=== PATIENT | female | born 1955 | race Caucasian/White ===

== ENCOUNTER 2021-08-25 08:03 | Outpatient (REF) | payer OTHER, SELFPAY ==
[2021-08-25 11:43] LABS: Appearance Urine HAZY; Color Urine YELLOW; Glucose Urine UA NEG (NEG); Leukocyte Esterase Urine TRACE (NEG); Nitrite Urine NEG (NEG); PH 6.5 (5.0-8.0); Urine Blood NEG (NEG); Urine Ketones NEG (NEG); Urine Protein NEG (NEG-TRACE)
[2021-08-25 11:53] LABS: Hemoglobin 13.8 g/dl (12.0-16.0); Mean Corpuscular HGB Conc 32.9 g/dl (31.0-35.0); Mean Corpuscular Hemoglobin 27.8 pg (27.0-33.0); Mean Corpuscular Volume 84.5 fL (80.0-98.0); Mean Platelet Volume 10.7 fL (9.4-12.3); Platelet Count 282 X10*3/uL (160-400); Red Blood Count 4.97 X10*6/uL (4.20-5.50); Red Cell Distribution Width 12.8 % (11.0-16.0); White Blood Count 5.9 X10*3/uL (4.8-10.8)
[2021-08-25 12:30] LABS: Amorphous Sediment Urine 3+ /LPF; RBC Urine 0-2 /HPF (0); Squamous Epithelial Cell Urine 4+ /LPF; WBC Urine 0-2 /HPF (0-4)
[2021-08-25 12:31] LABS: Alanine Aminotransferase 15 U/L (0-31); Albumin Level 4.4 g/dL (3.5-5.0); Alkaline Phosphatase 65 U/L (39-117); Anion Gap 17 (12-20); Aspartate Amino Transferase 12 U/L (5-31); Bilirubin Total 0.5 mg/dL (0.0-1.0); Blood Urea Nitrogen 24 mg/dL (9-16); Calcium 9.3 mg/dL (8.4-10.2); Carbon Dioxide 21 mmol/L (22-29); Chloride 108 mmol/L (96-108); Cholesterol 210 mg/dL; Estimated Glomerular Filt Rate > 60; Glucose Fasting 106 mg/dL (60-99); HDL Cholesterol 45 mg/dL; LDL Cholesterol Calculated 136 mg/dl; Potassium 4.5 mmol/L (3.3-5.1); Sodium 141 mmol/L (135-145); Total Protein 7.3 g/dL (6.5-8.0); Triglycerides 146 mg/dL
[2021-08-25 12:56] LABS: TSH reflex Free T4 0.93 uIU/mL (0.32-4.0)
== END 2021-08-25 08:04 | disposition home or self-care (01) ==
LOC: HO.HMGCLDS 08:03
PROVIDERS: PCP Internal Medicine; Visit Provider Internal Medicine
DX: Z00.00 Encounter for general adult medical examination without abnormal findings (principal)
CPT/HCPCS: 36415; 80053; 80061; 81001; 84443; 85027

== ENCOUNTER 2021-11-18 14:54 | Outpatient (REF) | payer OTHER, SELFPAY ==
--- NOTE | ~2021-11-18 | XR_ITS ---
EXAMINATION: XR KNEE, LEFT CLINICAL INFORMATION: Pain COMPARISON: None TECHNIQUE: Four views of the left knee. FINDINGS: Bone alignment is normal. No fracture or dislocation is seen. There is a arthritis at the medial femoral tibial and patellofemoral joints with joint space narrowing and small osteophytes. There is a small joint effusion. XR/XR knee LT 4V IMPRESSION: Degenerative changes and small joint effusion.
== END 2021-11-18 14:55 | disposition home or self-care (01) ==
LOC: HO.HMGCX 14:54
PROVIDERS: Visit Provider Nurse Practitioner Family
DX: I10 Essential (primary) hypertension (principal); R01.1 Cardiac murmur, unspecified; M25.562 Pain in left knee
CPT/HCPCS: 73564

== ENCOUNTER → 2021-12-15 09:16 | Outpatient (REF) | payer OTHER, SELFPAY ==
--- NOTE | 2021-12-15 09:20 | CA_ITS ---
Transthoracic Echocardiogram Patient (Last, First, Middle): Carolann Mckeon, Gender: Female Date of : 1955 Age: 66 Procedure Date: 12/15/2021 Procedure Type: Transthoracic Echocardiogram Location: OP Height: 170.18 cm Weight: 95.26 kg BSA: 2.06 m2 Heart Rate: bpm BP: 150 / 90 mmHg Lpn Or Medical Assistant: JA Referring MD: Levi Sanchez [facility] Substation Manager: Juan F Bishop MD Symptoms: R01.1 - Cardiac murmur, unspecified Study Quality: Fair ECG Rhythm: Sinus Conclusions: - 1. Normal LV systolic function with grade 1 diastolic dysfunction 2. Normal cardiac valvular Doppler 3. Normal RV systolic pressure 4. No pericardial effusion Findings Left Ventricle Normal left ventricular size, thickness, and systolic function. The visually estimated ejection fraction is between 65-70%. Spectral Doppler is indicative of an impaired relaxation filling pattern. E/E prime ratio is <8, consistent with normal filling pressures. Evidence suggests grade I (mild) diastolic dysfunction. Right Ventricle Normal right ventricular cavity size and systolic function. Atria Both atria are normal in size. Interatrial shunt cannot be excluded. Aortic Valve The aortic valve structure and function is likely normal. There is no aortic valve stenosis. There is no aortic valve regurgitation. Mitral Valve Normal mitral valve structure and function. There is trace mitral valve regurgitation. There is no mitral valve stenosis. Pulmonic Valve The pulmonic valve was not well visualized. Tricuspid Valve Likely normal tricuspid valve structure and function. There is trace tricuspid valve regurgitation. The right ventricular systolic pressure is normal. The right ventricular systolic pressure is 24 mmHg. Normal right atrial pressure. There is no evidence of pulmonary hypertension. Great Vessels All visible segments of the aorta are normal in size. The pulmonary artery was not well visualized. Venous The inferior vena cava is normal in size and collapses greater than 50% with inspiration. Pericardium/Pleural There is no evidence of pericardial effusion. Prior Study Comparison No prior study available for comparison. Measurements 2D Linear Measurements IVSd: 1.21 0.6-0.9/0.6-1.0 cm LVIDd: 4.30 3.9-5.3/4.2-5.9 cm LVIDd Index: 2.09 2.4-3.2/2.2-3.1 cm/m2 LVIDs: 2.47 2.0-3.6 cm LVPWd: 1.08 0.7-1.1 cm LA Diam: 3.50 2.7-3.8/3.0-4.0 cm LAIDs Index: 1.70 1.5-2.3 cm/m2 LV Mass: 214.95 67-162/88-224 g LV Mass Index: 104.35 43-95/49-115 g/m2 LVOT Diam: 2.00 3.0+(-)1.3 cm 2D Systolic Function EF 4C: 72.60 >55% EF 2C: 69.40 >55% EF BiP: 70.70 >55% Mitral Valve MV Pk E: 0.52 MV PK A: 0.78 MV Decel Time: 193.00 E/A: 0.70 E'Lateral: 7.94 E'Medial: 7.07 E/E' Med: 7.40 E/E' Lat: 6.60 PHT: 56.00 MVA PHT: 3.93 Decel [place]: 2.71 Aortic Valve AoV Pk Adithya: 1.36 AoV Pk Grad: 7.00 LVOT LVOT Pk Adithya: 0.94 LVOT Mn Adithya: 0.59 LVOT VTI: 0.22 LVOT Pk Grad: 4.00 LVOT Mn Grad: 2.00 LVOT Diam: 2.00 LVOT Area: 3.14 Diastolic Function MV Pk E: 0.52 MV Pk A: 0.78 E/A: 0.70 E'Medial: 7.07 E/E' Med: 7.40 E' Laterial: 7.94 E/E' Lat: 6.60 Right Ventricle TAPSE (mm): 2.48 TVS' Adithya: 14.30 Tricuspid Valve TR Pk Adithya: 2.28 TR Pk Grad: 21.00 RA Press: 3.00 RVSP: 24.00 Great Vessels Aorta Ao Asc: 2.90 2.1-3.4 cm Ao Arch: 3.00 Updated in Other Vendor System with Status of Final Juan F Bishop MD electronically signed on 12/16/2021 12:06:01 PM with status of Final
== END ==
LOC: HO.CARD 09:16
PROVIDERS: PCP Nurse Practitioner Family; Visit Provider Nurse Practitioner Family
DX: R01.1 Cardiac murmur, unspecified (principal)
CPT/HCPCS: 93306

== ENCOUNTER 2022-01-19 10:00 | Outpatient (RCR) | payer OTHER, SELFPAY ==
--- NOTE | 2021-12-23 12:52 | MHC.PT.EP ---
[facility] [place] Office [place] Office [place] Office [address] [phone] F: [phone] F: [phone] F: [phone] F: [phone] Physical Therapy Plan of Care Date of Evaluation: Date of Surgery: Diagnosis: L knee OA Assessment: Patient is a 66 year old R handed female who presents with s/s consistent with L knee pain. 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 Patient past medical history is fairly unremarkable and non-contributory. Current impairments include pain, balance, ROM, strength, activity tolerance and functional mobility. Functional limitations include decreased ability to push e-brake, walk, stand, negotiate stairs and exercise. Patient is motivated with good rehab potential. Skilled PT will address impairments and functional limitations in order to achieve goals. Frequency and Duration: The patient will be seen 2x/week for 5 weeks Short Term Goals: I with HEP - 2 weeks AAROM flexion to 125 - 3 weeks Strength 4/5 knee ext and hip flexion - 3 weeks Administrative Services Manager Goals: Able to walk pain free with symmetrical gait - 15 minutes - 5 weeks Pain free stair negotiation - 5 weeks LEFS 64/80 - 5 weeks Treatment Plan: Modalities to reduce pain, spasms and effusion. Manual therapy to restore motion and function. Therapeutic exercise to improve strength and flexibility. Neuromuscular re-education for posture and balance. Therapeutic activities to return to functional activities of daily living. Electronically signed by: Roni Miller, PT Please sign and return to therapist. Thank you for your referral.
--- NOTE | 2022-06-29 09:32 | MHC.PT.DC ---
[facility] [place] Office [place] Office [place] Office [address] Radha Saunders [address] [phone] F: [phone] F: [phone] F: [phone] F: [phone] Physical Therapy Discharge Report Diagnosis: L knee OA Date of Surgery: Date of Evaluation: 12/22/21 Date of Discharge: 02/09/22 Treatments to Date: 7 Cancellations to Date: No Shows to Date: Discharge Status: Improved Function Independent with HEP Discharge Summary: 01/19/22: Pt progressing very well, improved ability to negotiate stairs reciprocally. Less pain overall. Updated HEP and issued bands. We will plan to follow up in 2 weeks then d/c to HEP at that time. 01/12/22: pt with some pain after upright bike. we will hold on this next visit for more preferable aerobic alternative. 01/09/22: pt AAROM flexion 130. I with HEP. Strength is 4/5 grossly. She is able to walk symmetrically pain free. We worked on stairs today and will continue to progress with this. 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 pain has been lessening but still there and greater on damp/rainy days. 01/02/22: pt progressing very well with little discomfort over the last few days. she is nearing PLOF. we will continue with current HEP. 12/29/21; Pt reported increase medial knee pain after shuttle. Pt patella mobility equal. Pt fatigued with hip abd red band. Electronically signed by: Roni Miller, PT Please sign and return to therapist. Thank you for your referral.
== END 2022-06-29 09:32 | disposition home or self-care (01) ==
LOC: HO.PTCHIC 10:00
PROVIDERS: PCP Nurse Practitioner Family; Visit Provider Nurse Practitioner Family
DX: M17.12 Unilateral primary osteoarthritis, left knee (principal)
CPT/HCPCS: 97110; 97161; 97530

== ENCOUNTER → 2022-04-17 09:26 | Outpatient (BNVA) | payer OTHER, SELFPAY | PROVIDERS: PCP Nurse Practitioner Family; Visit Provider Physician Assistant | DX: Z12.11 Encounter for screening for malignant neoplasm of colon (principal); R93.3 Abnormal findings on diagnostic imaging of other parts of digestive tract | CPT/HCPCS: 99202; 99212 ==

== ENCOUNTER 2022-04-27 06:55 | Outpatient (REF) | payer OTHER, SELFPAY ==
[2022-04-27 11:04] LABS: MANUAL DIFF FLAG NO
[2022-04-27 11:11] LABS: Basophils Absolute Auto 0.1 X10*3/uL (0.0-0.2); Basophils Percent Auto 1.1 % (0-2); Eosinophils Absolute Auto 0.1 X10*3/uL (0.0-0.4); Eosinophils Percent Auto 0.8 % (0-4); Hematocrit 39.9 % (37.0-47.0); Imm Gran Abs Auto 0.01 X10*3/uL (0.00-0.03); Imm Gran Pct Auto 0.2 % (0.0-0.4); Lymphocytes Absolute Auto 2.5 X10*3/uL (1.2-4.9); Lymphocytes Percent Auto 39.7 % (20-40); Mean Corpuscular HGB Conc 32.6 g/dl (31.0-35.0); Mean Corpuscular Hemoglobin 28.2 pg (27.0-33.0); Mean Corpuscular Volume 86.6 fL (80.0-98.0); Mean Platelet Volume 10.1 fL (9.4-12.3); Monocytes Absolute Auto 0.7 X10*3/uL (0.1-1.2); Monocytes Percent Auto 10.9 % (2-11); Neutrophils Percent Auto 47.3 % (45-73); Platelet Count 260 X10*3/uL (160-400); Red Blood Count 4.61 X10*6/uL (4.20-5.50); White Blood Count 6.2 X10*3/uL (4.8-10.8)
[2022-04-27 11:13] LABS: Appearance Urine HAZY; Color Urine STRAW; Glucose Urine UA NEG (NEG); Leukocyte Esterase Urine TRACE (NEG); Nitrite Urine NEG (NEG); PH 5.5 (5.0-8.0); Specific Gravity - Urine 1.015 (1.005-1.025); Urine Blood NEG (NEG); Urine Ketones NEG (NEG); Urine Protein NEG (NEG-TRACE)
[2022-04-27 11:22] LABS: Alanine Aminotransferase 15 U/L (0-31); Albumin Level 4.3 g/dL (3.5-5.0); Alkaline Phosphatase 70 U/L (39-117); Anion Gap 12 (12-20); Aspartate Amino Transferase 10 U/L (5-31); Bilirubin Total 0.6 mg/dL (0.0-1.0); Blood Urea Nitrogen 21 mg/dL (9-16); Calcium 9.2 mg/dL (8.4-10.2); Carbon Dioxide 26 mmol/L (22-29); Chloride 109 mmol/L (96-108); Cholesterol 211 mg/dL; Estimated Glomerular Filt Rate > 60; Glucose Fasting 124 mg/dL (60-99); HDL Cholesterol 46 mg/dL; LDL Cholesterol Calculated 145 mg/dl; Potassium 4.2 mmol/L (3.3-5.1); Sodium 143 mmol/L (135-145); Triglycerides 104 mg/dL
[2022-04-27 11:30] LABS: Amorphous Sediment Urine 3+ /LPF; Bacteria Urine TRACE /LPF; RBC Urine 0 /HPF (0); Squamous Epithelial Cell Urine 4+ /LPF
[2022-04-27 11:46] LABS: TSH reflex Free T4 1.72 uIU/mL (0.32-4.0)
== END 2022-04-27 06:56 | disposition home or self-care (01) ==
LOC: HO.HMGCLDS 06:55
PROVIDERS: Visit Provider Nurse Practitioner Family
DX: I10 Essential (primary) hypertension (principal)
CPT/HCPCS: 36415; 80053; 80061; 81001; 84443; 85025

== ENCOUNTER 2022-05-09 07:53 | Day surgery (SDC) | payer OTHER, SELFPAY ==
[2022-05-03 14:38] VITALS: BMI 33.6
--- NOTE | 2022-05-08 09:27 | P.CONAN_ITS ---
Documented by User: Fabby Cunningham NP 05/08/22 09:29 HPI - Anesthesia Eval Consult details Narrative: 66yo F for Colonoscopy PMFSH Active Problems Active Problems: All Active Problems (Updated 04/17/22 @ 11:24 by Juhi Nieto PA-C) Screening for colon cancer (Acute) Osteoarthritis of left knee (Acute) Left knee pain (Acute) Systolic murmur (Acute) HTN (hypertension) (Acute) Abnormal colonoscopy (Acute) Normal pelvic exam (Acute) Annual physical exam (Acute) Past Medical History Medical History Abnormal colonoscopy Annual physical exam Normal pelvic exam Family History Family History Mother HTN (hypertension) Surgical History Surgical History History of removal of ovarian cyst Hx of colonoscopy Social History Social History 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:: , 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, 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, daughter in [place] Housing: House Patient Tobacco Use Status: Former Tobacco user Years Smoked: quit 1983 e-Cigarette/Vaping Use: Never Used Second Hand Smoke Exposure: No Are you DNR?: No Advance Directives: No Advance Directives Information Provided: Yes Nutrition Risks: No Nutritional Risk service: No Current occupational status: employed Current occupation: [employer] Current occupational exposures/hazards: Yes Cognitive needs: No Hearing needs: No Vision needs: No Meds Allergies Allergy/AdvReac Type Severity Reaction Status Date / Time tetracycline AdvReac Intermediate Rash Verified 05/09/22 08:35 Home Medications Medication Instructions Recorded Confirmed Last Taken Type cetirizine 10 mg capsule (Zyrtec) 10 mg PO DAILY PRN Allergic 08/12/21 05/03/22 Unknown History Symptoms Exam Exam Date and Time: May 08, [id number] Height,Weight and Vital Signs: Height 5 ft 7 in Weight 97.522 kg Pertinent Lab Results Pertinent Lab Results: Laboratory Tests 04/27/22 04/27/22 07:05 07:05 WBC 6.2 Hgb 13.0 Hct 39.9 Plt Count 260 Sodium 143 Potassium 4.2 Chloride 109 H Carbon Dioxide 26 BUN 21 H Creatinine 0.80 Narrative Narrative: ECHO 12/2021 Conclusions: - 1.? Normal LV systolic function with grade 1 diastolic ? dysfunction? 2.? Normal cardiac valvular Doppler? 3.? Normal RV systolic pressure? 4.? No pericardial effusion? ?? Assessment and Plan Assessment Anesthesia Assessment: Chart Reviewed Documented by User: Kristie Diaz MD 05/09/22 09:44 PMFSH Active Problems Active Problems: All Active Problems (Updated 04/17/22 @ 11:24 by Juhi Nieto PA-C) Screening for colon cancer (Acute) Osteoarthritis of left knee (Acute) Left knee pain (Acute) Systolic murmur (Acute) HTN (hypertension) (Acute) Abnormal colonoscopy (Acute) Normal pelvic exam (Acute) Annual physical exam (Acute) Increased BMI Past Medical History Medical History Abnormal colonoscopy Annual physical exam Normal pelvic exam Family History Family History Mother HTN (hypertension) Family history of problems with anesthesia: No Surgical History Surgical History History of removal of ovarian cyst Hx of colonoscopy History of Problems with Anesthesia: No Social History Social History 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:: , 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, 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, benjamín kuo in [place] Housing: House Patient Tobacco Use Status: Former Tobacco user Years Smoked: quit 1983 e-Cigarette/Vaping Use: Never Used Second Hand Smoke Exposure: No Are you DNR?: No Advance Directives: No Advance Directives Information Provided: Yes Nutrition Risks: No Nutritional Risk service: No Current occupational status: employed Current occupation: [employer] Current occupational exposures/hazards: Yes Cognitive needs: No Hearing needs: No Vision needs: No Meds Allergies Allergy/AdvReac Type Severity Reaction Status Date / Time tetracycline AdvReac Intermediate Rash Verified 05/09/22 08:35 Home Medications Medication Instructions Recorded Confirmed Last Taken Type cetirizine 10 mg capsule (Zyrtec) 10 mg PO DAILY PRN Allergic 08/12/21 05/03/22 Unknown History Symptoms Exam Height,Weight and Vital Signs: Height 5 ft 7 in Weight 97.522 kg Vital Signs Temp Pulse Resp BP Pulse Ox O2 Del Method 05/09/22 08:19 98.2 F 72 18 141/76 H 95 Room Air Airway Mallampati Class: III TM Dist: >3cm Neck ROM: Full Loose/Missing/Broken Teeth: Yes (1 extraction bottom right. No loose per patient ) Heart: RRR Lungs: CTAB Assessment and Plan Assessment Anesthesia Assessment: Anesthesia Plan Discussed Final Anesthetic Review Family History of Problems with Anesthesia: No History of Problems with Anesthesia: No NPO: Yes ASA Class: II Final Preanesthetic Review: No Changes in Pt Med Stat, Meds/Allgs Chart Reviewed, Consent Obtained/Reviewed and Anes Risks/Benef Reviewed Patient Risk: Intermediate Procedure Risk: Low Assessment/Block/Sedation in SS: Assess/Block/Sedation-SS Anesthetic Plan Anesthetic Plan: MAC: Disposition: Standard PACU
[2022-05-09] MEDS: Lactated Ringers 1,000 ML 100 ML IVCONT (08:09)
[2022-05-09 08:19] VITALS: BP 141/76; PULSE 72; RESP 18; TEMP 36.8; O2SAT 95
--- NOTE | 2022-05-09 08:38 | P.HPSUR_ITS ---
Pre-Procedural Eval Section A Date of Service: 05/09/22 Section B Chief Complaint: colon screening Relevant Family History (Specify if Yes): No Relevant Social History: Other (specify) Present Medications: see Short Stay Collaborative assessment Medical History: Significant History (Abnormal colonoscopy Annual physical exam Normal pelvic exam) History of Previous Operations: Relevant previous surgery/procedure and date(s) (History of removal of ovarian cyst Hx of colonoscopy) Allergies: Allergies Allergy/AdvReac Type Severity Reaction Status Date / Time tetracycline AdvReac Intermediate Rash Verified 05/09/22 08:35 Review of Systems Sugical H&P ROS: Negative: Constitution, Cardiovascular, Respiratory, Neurological, Psychiatric, Hem-Onc, Allergic/Immunologic, Gastrointestinal, Genitourinary, Musculoskeletal, Integumentary, Endocrine and Eyes/Ears/Nos e/Throat Exam Surgical H&P Exam: Normal: HEENT, Normal: Heart, Normal: Lungs, Normal: Extremities, Normal: Abdomen, Normal: Skin and Normal: Neurological Plan Diagnosis/Plan: Unchanged I have reviewed the history and physical and performed a pertinent physical examination on my patient. No changes have occurred unless specified.
--- NOTE | 2022-05-09 09:44 | P.OP_ITS ---
Operative Note Operative Note Date of Service: 05/09/22 Narrative: Operative Information Procedure Description: Colonoscopy Indication: screening Anesthesia: MAC COLONOSCOPY Instrument: Olympus variable stiffness pediatric scope 190L Colonoscopy Monitoring: Vital signs and clinical assessment, continuous EKG monitoring, Pulse oximetry, Carbon Dioxide monitoring and blood pressure monitoring were done throughout the procedure. Colon withdrawal time was 6 minutes. Procedure: The patient was placed in the left lateral decubitis position and pre-procedure medications were administered. After a digital rectal examination of the ano-rectum, the video colonoscope was inserted into the rectum and advanced through the colon to the cecum/TI. The colonoscope was slowly withdrawn in a retrograde panoramic fashion and the colon mucosa was carefully examined including a retroflexed view of the rectum. Findings and interventions are described below. Procedure Difficulty: easy Findings: Terminal Ileum-normal Cecum: non bleeding AVMs seen in cecum Ascending Colon: 6-8 mm sessile polyp removed with cold forceps Transverse Colon -normal Descending Colon:normal Sigmoid Colon: midl diverticulosis Rectum: Retroflexion with medium sized internal hemorrhoids, grade I Anorectum - normal Colon preparation: [place] Bowel Preparation Scale Right colon; 2 Transverse colon: 2 Left colon; 2 (0 = Unprepared colon segment with mucosa not seen due to solid stool that canno t be cleared. 1 = Portion of mucosa of the colon segment seen, but other areas of the colon segment not well seen due to staining, residual stool and/or opaque liquid. 2 = Minor amount of residual staining, small fragments of stool and/or opaque liquid, but mucosa of colon segment seen well. 3 = Entire mucosa of colon segment seen well with no residual staining, small fragments of stool or opaque liquid) Impression and Post Procedure Diagnosis: Plan: High fiber diet leaflet Avoid straining at stool, epsom salts and sitz bath, anusol supps or cream Repeat Colonoscopy in 5-7 years if adenomatous polyp, 10 yrs if benign or earlier if clinically indicated Above findings were reviewed with the patient and relevant handouts were provided if indicated.
[2022-05-09 09:52] VITALS: BP 142/64; PULSE 65; RESP 15; TEMP 36.3; O2SAT 97
[2022-05-09 10:06] VITALS: BP 157/83; PULSE 60; RESP 18; TEMP 36.3; O2SAT 97
== END 2022-05-09 10:27 | disposition home or self-care (01) ==
PROVIDERS: PCP Nurse Practitioner Family; Visit Provider Internal Medicine Gastroenterology
PROC: 0DJD8ZZ Inspection of Lower Intestinal Tract, Via Natural or Artificial Opening Endoscopic (ICD-10-PCS; CPT 45378; principal; 2022-05-09 09:10)
DX: Z12.11 Encounter for screening for malignant neoplasm of colon (principal); K63.5 Polyp of colon; K57.30 Diverticulosis of large intestine without perforation or abscess without bleeding; K64.0 First degree hemorrhoids; K55.20 Angiodysplasia of colon without hemorrhage; K59.00 Constipation, unspecified; Z79.899 Other long term (current) drug therapy; Z87.891 Personal history of nicotine dependence
CPT/HCPCS: 45380; 88305

== ENCOUNTER 2023-04-04 07:17 | Outpatient (REF) | payer BC, SELFPAY ==
[2023-04-04 11:16] LABS: MANUAL DIFF FLAG NO
[2023-04-04 11:25] LABS: Basophils Absolute Auto 0.1 X10*3/uL (0.0-0.2); Basophils Percent Auto 1.3 % (0-2); Eosinophils Absolute Auto 0.1 X10*3/uL (0.0-0.4); Eosinophils Percent Auto 1.1 % (0-4); Hematocrit 41.6 % (37.0-47.0); Hemoglobin 13.3 g/dl (12.0-16.0); Imm Gran Abs Auto 0.01 X10*3/uL (0.00-0.03); Imm Gran Pct Auto 0.2 % (0.0-0.4); Lymphocytes Absolute Auto 2.4 X10*3/uL (1.2-4.9); Lymphocytes Percent Auto 42.4 % (20-40); Mean Corpuscular Hemoglobin 28.5 pg (27.0-33.0); Mean Corpuscular Volume 89.1 fL (80.0-98.0); Mean Platelet Volume 10.5 fL (9.4-12.3); Monocytes Absolute Auto 0.6 X10*3/uL (0.1-1.2); Monocytes Percent Auto 11.6 % (2-11); Neutrophils Absolute Auto 2.4 x10*3/uL (2.0-8.3); Neutrophils Percent Auto 43.4 % (45-73); Platelet Count 256 X10*3/uL (160-400); Red Blood Count 4.67 X10*6/uL (4.20-5.50); White Blood Count 5.5 X10*3/uL (4.8-10.8)
[2023-04-04 11:35] LABS: Appearance Urine Cloudy; Color Urine Yellow; Glucose Urine UA Negative (Negative); Leukocyte Esterase Urine Moderate (2+) (Negative); Nitrite Urine Negative (Negative); PH 5.5 (5.0-9.0); UMIC TRIGGER UACC YES; Urine Blood Negative (Negative); Urine Ketones Negative (Negative); Urine Protein Negative (Neg-Trace)
[2023-04-04 11:39] LABS: Bacteria Urine 3+ (None Seen); Hyaline Casts Urine 0-2 /LPF (0-2); RBC Urine 0-2 /HPF (0-2); Squamous Epithelial Cell Urine >20 /HPF (0-2); UACC Culture Trigger YES
[2023-04-04 12:00] LABS: Alanine Aminotransferase 15 U/L (0-31); Alkaline Phosphatase 63 U/L (39-117); Anion Gap 7 (12-20); Aspartate Amino Transferase 11 U/L (5-31); Bilirubin Total 0.5 mg/dL (0.0-1.0); Blood Urea Nitrogen 23 mg/dL (9-16); Calcium 9.1 mg/dL (8.4-10.2); Carbon Dioxide 26 mmol/L (22-29); Chloride 109 mmol/L (96-108); Cholesterol 205 mg/dL; Estimated Glomerular Filt Rate > 60; Glucose Fasting 120 mg/dL (60-99); HDL Cholesterol 42 mg/dL; LDL Cholesterol Calculated 142 mg/dl; Potassium 4.1 mmol/L (3.3-5.1); Sodium 138 mmol/L (135-145); Triglycerides 106 mg/dL
[2023-04-04 12:03] LABS: TSH reflex Free T4 1.93 uIU/mL (0.32-4.0)
== END 2023-04-04 07:18 | disposition home or self-care (01) ==
LOC: HO.HMGCLDS 07:17
PROVIDERS: PCP Nurse Practitioner Family; Visit Provider Nurse Practitioner Family
DX: I10 Essential (primary) hypertension (principal); Z78.0 Asymptomatic menopausal state; R30.0 Dysuria; Z13.89 Encounter for screening for other disorder
CPT/HCPCS: 36415; 80053; 80061; 81001; 84443; 85025; 87086

== ENCOUNTER 2023-04-11 13:25 | Outpatient (REF) | payer BC, SELFPAY | END 2023-04-11 13:26 | disposition home or self-care (01) | LOC: HO.MAMMO 13:25 | PROVIDERS: Visit Provider Nurse Practitioner Family | DX: Z13.820 Encounter for screening for osteoporosis (principal); Z78.0 Asymptomatic menopausal state | CPT/HCPCS: 77080 ==

== ENCOUNTER → 2024-01-21 10:12 | Outpatient (AMB) | payer BC, SELFPAY ==
--- NOTE | 2024-01-21 10:15 | A.OFFPC_ITS ---
Vital Signs 01/21/24 10:17 01/21/24 11:02 Height 5 ft 7 in Weight 228 lb BMI 35.7 BP 130/90 H 120/82 Blood Pressure Location Rt brachial Lt brachial Position Sitting Sitting Pulse 80 Pulse Source Pulse Oximeter Pulse Oximetry (%) 98 Oxygen Delivery Method Room Air Intake Visit Reasons: 6 month follow up ( Meds) Intake Note: Patient here to follow up HTN. Allergies tetracycline Adverse Reaction (Intermediate, Verified 01/21/24 10:18) Rash Medication List - Last Reconciled 01/21/24 by LUDIN Sagastume amlodipine 5 mg PO DAILY calcium carbonate-vitamin D3 600 mg-10 mcg (400 unit) 1 tab PO BID cetirizine (Zyrtec) 10 mg PO DAILY PRN irbesartan 300 mg PO DAILY Tobacco use date assessed: 01/21/24 Fall risk assessment: No Falls in past year Last assessed Fall Risk: 01/21/24 Dental Screening Dental Screen Date: 01/21/24 Did you have a dental visit in the last 12 months?: Yes Did you have a dental problem in the last 6 months where you did not have access to dental care?: No Was dental information given to patient?: Patient has dentist HPI 6 month follow up ( Meds) HPI Details HTN: Blood pressure is stable, managed with amlodipine 5mg and irbesartan 300mg. Pt used to check her blood pressure at home but no longer does. Will order labs. Denies chest pain, shortness of breath, headache, dizziness, and blurred vision. Pt reports some seasonal affective disorder. She plans to start setting up her garden in the near future. She is going out with friends more as well. Denies any SI and HI. Pt reports a vesicular nodule to her left thumb. She reports that this comes and goes and is not tender. Will refer to derm. 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 1. Little interest or pleasure in doing things: not at all 2. Feeling down, depressed, or hopeless: not at all 3. Trouble falling or staying asleep, or sleeping too much: not at all 4. Feeling tired or having little energy: not at all 5. Poor appetite or overeating: several days 6. Feeling bad about yourself - or that you are a failure or have let yourself or your family down: not at all 7. Trouble concentrating on things, such as reading the newspaper or watching television: not at all 8. Moving or speaking so slowly that other people could have noticed. Or the opposite - being so fidgety or restless that you have been moving around a lot more than usual: not at all 9. Thoughts that you would be better off or of hurting yourself in some way: not at all Total score: 1 Depression Screening Interpretation: Negative Depression Screening Done: Yes 71165 - PHQ-9 Billing: Yes Source: Developed by Drs. Mike Benjamin, Urmila Cabrales, Bayron Mathew and colleagues, with an educational jim from [employer]. Thrive Questionnaire Date Thrive assessed: 01/21/24 What is your living situation today?: I choose not to answer this question Within the past 12 months, did the food you bought not last and you didn't have the money to get more?: I choose not to answer this question Within the past 12 months, did you worry whether your food would run out before you got money to buy more?: I choose not to answer this question Do you have trouble paying for medicines?: I choose not to answer this question Do you have trouble getting transportation to medical appointments?: I choose not to answer this question Do you have trouble paying your heating and electricity bill?: I choose not to answer this question Do you have trouble taking care of your child, family member or friend?: I choose not to answer this question Do you have trouble with day-to-day activities such as bathing, preparing meals, shopping, managing finances, etc.?: I choose not to answer this question Are you currently unemployed and looking for a job?: I choose not to answer this question Are you interested in more education?: I choose not to answer this question Currently or been in a relationship where the following occur: I choose not to answer this question THRIVE Score: 0 AUDIT C Alcohol Use Questionnaire (AUDIT-C) 1. How often do you have a drink containing alcohol?: Monthly or less 2. How many drinks containing alcohol do you have on a typical day when you are drinking?: 1 or 2 3. How often do you have six or more drinks on one occasion?: Never Total Score: 1 Score Reviewed/Action Taken: No GUILLERMO-7 AMB Questionnaire GUILLERMO-7 Date GUILLERMO - 7 assessed: 01/21/24 Source: Developed by Drs. Mike Benjamin, Urmila Cabrales, Bayron Mathew and colleagues, with an educational jim from [employer]. GUILLERMO-7 Assessment Billing GUILLERMO-7 Assessment Tool: pt declined-do not bill Review of Systems Const Reports as per HPI Physical exam (Primary Care) Vital Signs: Last Vital Signs Pulse 80 01/21/24 10:17 BP 130/90 H 01/21/24 10:17 Pulse Ox 98 01/21/24 10:17 Oxygen Delivery Method Room Air 01/21/24 10:17 BMI result Body Mass Index 35.7 Tobacco/Smoking Status: Tobacco use Status Tobacco use date assessed 01/21/24 01/21/24 10:22 Patient Tobacco Use Status Former Tobacco user 01/21/24 10:17 e-Cigarette/Vaping Use Never Used 01/21/24 10:17 PHQ-9: PHQ-9 Score PHQ-9: Total score 1 01/21/24 10:44 Depression Screening Interpretation: Negative Thrive Assessment: Date of Thrive Assessment Date Thrive assessed 01/21/24 01/21/24 10:24 Currently or been in a relationship where the following occur: I choose not to answer this question Const General: cooperative Nutritional Appearance: obese Orientation/consciousness: patient oriented x3 Resp Effort & Inspection: normal respiratory effort Auscultation: clear to auscultation bilaterally Cardio Rate: regular rate Rhythm: regular rhythm Heart sounds: S1 normal heart sound present, S2 normal heart sound present and Murmur heart sound present systolic (faint) Neuro General: patient oriented x3 Extrem Other: left thumb dorsal medial aspect over interphalangeal joint with vesicular lesion, no surrounding erythema, no tenderness with palpation, full ROM to entire hand/joint Right lower extremity: no edema Left lower extremity: no edema Psych Appearance: grossly normal Mental Status: mental status grossly normal Speech and movement: Normal speech and movement present Affect: normal affect Attitude: cooperative Thought process: Normal thought process present Thought content: Normal thought content present Insight: Good insight present (Psych) Judgement: Good judgement present (Psych) Assessment and Plan Assessment & Plan (1) HTN (hypertension): Code(s): I10 - Essential (primary) hypertension Plan: Labs ordered, stable (2) Lesion of thumb: Code(s): L98.9 - Disorder of the skin and subcutaneous tissue, unspecified Plan: referred to derm (3) Osteopenia: Code(s): M85.80 - Other specified disorders of bone density and structure, unspecified site Plan: up to date bone density, will recheck vitamin d Plan The patient agreed to the use of a manager medical for this encounter. Scribed for LUDIN Jasso by Mojgan James manager medical, on 01/21/2024 at 10:40 EST. Orders: Orders Lipid Panel Today I10 - Essential (primary) hypertension Complete Blood Count Auto Diff Today I10 - Essential (primary) hypertension Comprehensive [place]. Panel Fast Today I10 - Essential (primary) hypertension TSH reflex Free T4 Today I10 - Essential (primary) hypertension UA CC w/rflx Micro + Cult Today I10 - Essential (primary) hypertension Vitamin D 25-OH Total Today I10 - Essential (primary) hypertension, M85.80 - Other specified disorders of bone density and structure, unspecified site Referrals Dermatology Referral L98.9 - Disorder of the skin and subcutaneous tissue, unspecified Coding Level of Care Code Est Pt Level 3 (07491) Diagnoses HTN (hypertension) I10 Lesion of thumb L98.9 Osteopenia M85.80
[2024-01-21 10:17] VITALS: BP 130/90; PULSE 80; O2SAT 98; BMI 35.7
[2024-01-21 11:02] VITALS: BP 120/82
== END ==
PROVIDERS: PCP Nurse Practitioner Family; Visit Provider Nurse Practitioner Family
DX: I10 Essential (primary) hypertension (principal); L98.9 Disorder of the skin and subcutaneous tissue, unspecified; M85.80 Other specified disorders of bone density and structure, unspecified site
CPT/HCPCS: 99213

== ENCOUNTER 2024-07-21 09:59 | Outpatient (AMB) | payer BC, SELFPAY ==
[2024-07-21 10:00] VITALS: BP 130/82; PULSE 87; O2SAT 97; BMI 35.1
--- NOTE | 2024-07-21 10:00 | MHC.PC.OV ---
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 Pt does not take her blood pressure at home, encouraged her to do this. Denies chest pain, shortness of breath, headache, dizziness, and blurred vision. Encouraged pt to have labs drawn. 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 67176 - PHQ-9 Billing: Patient declined-do not bill Source: Developed by Drs. Mike Benjamin, Bayron Becker and colleagues, with an educational jim from [employer]. Thrive Questionnaire Date Thrive assessed: 07/14/24 I am a: Patient What is your living situation today?: I have a steady place to live Within the past 12 months, did the food you bought not last and you didn't have the money to get more?: Never true Within the past 12 months, did you worry whether your food would run out before you got money to buy more?: Never true Do you have trouble paying for medicines?: No Do you have trouble getting transportation to medical appointments?: No Do you have trouble paying your heating and electricity bill?: No Do you have trouble with day-to-day activities such as bathing, preparing meals, shopping, managing finances, etc.?: No Are you interested in more education?: No Please select the resources that you would like help with: None Currently or been in a relationship where the following occur: I choose not to answer THRIVE Score: 0 AUDIT C Alcohol Use Questionnaire (AUDIT-C) 1. How often do you have a drink containing alcohol?: Monthly or less 2. How many drinks containing alcohol do you have on a typical day when you are drinking?: 1 or 2 3. How often do you have six or more drinks on one occasion?: Never Total Score: 1 Score Reviewed/Action Taken: Yes GUILLERMO-7 AMB Questionnaire GUILLERMO-7 Date GUILLERMO - 7 assessed: 01/21/24 Source: Developed by Drs. Mike Benjamin, Bayron Becker and colleagues, with an educational jim from [employer]. GUILLERMO-7 Assessment Billing GUILLERMO-7 Assessment Tool: pt declined-do not bill Review of Systems Const Reports as per HPI Physical exam (Primary Care) Vital Signs: Last Vital Signs Pulse 87 07/21/24 10:00 BP 130/82 07/21/24 10:00 Pulse Ox 97 07/21/24 10:00 Oxygen Delivery Method Room Air 07/21/24 10:00 BMI result Body Mass Index 35.1 Tobacco/Smoking Status: Tobacco use Status Tobacco use date assessed 01/21/24 07/21/24 10:01 Patient Tobacco Use Status Former Tobacco user 07/21/24 10:01 e-Cigarette/Vaping Use Never Used 07/21/24 10:01 Thrive Assessment: Date of Thrive Assessment Date Thrive assessed 07/14/24 07/21/24 10:01 Currently or been in a relationship where the following occur: I choose not to answer Const General: cooperative Nutritional Appearance: obese Orientation/consciousness: patient oriented x3 Resp Effort & Inspection: normal respiratory effort Auscultation: clear to auscultation bilaterally Cardio Rate: regular rate Rhythm: regular rhythm Heart sounds: S1 normal heart sound present and S2 normal heart sound present Neuro General: patient oriented x3 Extrem Right lower extremity: no edema Left lower extremity: no edema Psych Appearance: grossly normal Mental Status: mental status grossly normal Speech and movement: Normal speech and movement present Affect: normal affect Attitude: cooperative Thought process: Normal thought process present Thought content: Normal thought content present Insight: Good insight present (Psych) Judgement: Good judgement present (Psych) Coding Level of Care Code Est Pt Level 3 (97501) Diagnoses HTN (hypertension) I10 Assessment & Plan Assessment & Plan (1) HTN (hypertension): Code(s): I10 - Essential (primary) hypertension Category: Medical Plan: cont same med regime, pt will send me BPs via portal from home. Plan The patient agreed to the use of a biomedical engineering internship for this encounter. Scribed for LUDIN Jasso by Mojgan James biomedical engineering internship, on 07/21/2024 at 10:20 EST. Orders: Orders MM screening mammo BI Today Z12.31 - Encounter for screening mammogram for malignant neoplasm of breast
== END 2024-07-21 10:35 | disposition home or self-care (01) ==
PROVIDERS: PCP Nurse Practitioner Family; Visit Provider Nurse Practitioner Family
DX: I10 Essential (primary) hypertension (principal)

== ENCOUNTER → 2024-07-21 09:59 | Outpatient (BNVA) | payer BC, SELFPAY | PROVIDERS: PCP Nurse Practitioner Family; Visit Provider Nurse Practitioner Family ==

== ENCOUNTER 2024-07-21 10:31 | Outpatient (REF) | payer BC, SELFPAY ==
[2024-07-21 13:02] LABS: MANUAL DIFF FLAG NO
[2024-07-21 13:11] LABS: Basophils Absolute Auto 0.1 X10*3/uL (0.0-0.2); Basophils Percent Auto 1.2 % (0-2); Eosinophils Percent Auto 0.6 % (0-4); Hematocrit 42.7 % (37.0-47.0); Hemoglobin 13.7 g/dl (12.0-16.0); Imm Gran Abs Auto 0.01 X10*3/uL (0.00-0.03); Imm Gran Pct Auto 0.2 % (0.0-0.4); Lymphocytes Absolute Auto 1.9 X10*3/uL (1.2-4.9); Lymphocytes Percent Auto 37.6 % (20-40); Mean Corpuscular HGB Conc 32.1 g/dl (31.0-35.0); Mean Corpuscular Hemoglobin 28.2 pg (27.0-33.0); Mean Platelet Volume 10.7 fL (9.4-12.3); Monocytes Absolute Auto 0.5 X10*3/uL (0.1-1.2); Monocytes Percent Auto 9.3 % (2-11); Neutrophils Absolute Auto 2.6 x10*3/uL (2.0-8.3); Neutrophils Percent Auto 51.1 % (45-73); Platelet Count 255 X10*3/uL (160-400); Red Blood Count 4.85 X10*6/uL (4.20-5.50); Red Cell Distribution Width 13.1 % (11.0-16.0)
[2024-07-21 13:46] LABS: Alanine Aminotransferase 14 U/L (0-31); Albumin Level 4.2 g/dL (3.5-5.0); Alkaline Phosphatase 60 U/L (39-117); Anion Gap 11 (12-20); Aspartate Amino Transferase 11 U/L (5-31); Bilirubin Total 0.6 mg/dL (0.0-1.0); Blood Urea Nitrogen 18 mg/dL (9-16); Calcium 9.8 mg/dL (8.4-10.2); Carbon Dioxide 25 mmol/L (22-29); Chloride 109 mmol/L (96-108); Cholesterol 205 mg/dL (<200); Estimated Glomerular Filt Rate > 60; Glucose Fasting 110 mg/dL (60-99); HDL Cholesterol 45 mg/dL (>40); LDL Cholesterol Calculated 130 mg/dL (<100); Potassium 3.8 mmol/L (3.3-5.1); Sodium 141 mmol/L (135-145); Total Protein 7.1 g/dL (6.5-8.0); Triglycerides 151 mg/dL (<150)
[2024-07-21 13:55] LABS: Appearance Urine Clear; Color Urine Yellow; Glucose Urine UA Negative (Negative); Leukocyte Esterase Urine Small (1+) (Negative); Nitrite Urine Negative (Negative); PH 6.5 (5.0-9.0); UMIC TRIGGER UACC YES; Urine Blood Negative (Negative); Urine Ketones Negative (Negative); Urine Protein Negative (Neg-Trace)
[2024-07-21 14:02] LABS: Bacteria Urine 1+ (None Seen); Hyaline Casts Urine 0-2 /LPF (0-2); RBC Urine 0-2 /HPF (0-2); UACC Culture Trigger YES
[2024-07-21 14:03] LABS: TSH reflex Free T4 1.08 uIU/mL (0.32-4.0); Vitamin D 25-OH Total 36.3 ng/mL (>30)
== END 2024-07-21 10:32 | disposition home or self-care (01) ==
LOC: HO.HMGCLDS 10:31
PROVIDERS: PCP Nurse Practitioner Family; Visit Provider Nurse Practitioner Family
DX: I10 Essential (primary) hypertension (principal); M85.80 Other specified disorders of bone density and structure, unspecified site; R82.90 Unspecified abnormal findings in urine
CPT/HCPCS: 36415; 80053; 80061; 81001; 82306; 84443; 85025; 87086

== ENCOUNTER 2024-09-27 08:57 | Outpatient (REF) | payer BC, SELFPAY | END 2024-09-27 08:58 | disposition home or self-care (01) | LOC: HO.MAMMO 08:57 | PROVIDERS: PCP Nurse Practitioner Family; Visit Provider Nurse Practitioner Family | DX: Z12.31 Encounter for screening mammogram for malignant neoplasm of breast (principal) | CPT/HCPCS: 77063; 77067 ==

== ENCOUNTER → 2024-09-27 09:00 | Outpatient (BNV) | payer BC, SELFPAY | PROVIDERS: PCP Nurse Practitioner Family; Visit Provider Internal Medicine | DX: Z12.31 Encounter for screening mammogram for malignant neoplasm of breast (principal) | CPT/HCPCS: 77063; 77067 ==

== ENCOUNTER 2025-01-13 09:31 | Outpatient (REF) | payer MEDICARE, SELFPAY ==
[2025-01-13 13:10] LABS: MANUAL DIFF FLAG NO
[2025-01-13 13:20] LABS: Appearance Urine Clear; Color Urine Yellow; Glucose Urine UA Negative (Negative); Leukocyte Esterase Urine Trace (Negative); Nitrite Urine Negative (Negative); Specific Gravity - Urine <= 1.005 (1.005-1.025); UMIC TRIGGER UACC YES; Urine Blood Negative (Negative); Urine Ketones Negative (Negative); Urine Protein Negative (Neg-Trace)
[2025-01-13 13:26] LABS: Bacteria Urine 1+ (None Seen); Hyaline Casts Urine 0-2 /LPF (0-2); RBC Urine 0-2 /HPF (0-2); WBC Urine 0-5 /HPF (0-5)
[2025-01-13 13:31] LABS: Basophils Absolute Auto 0.1 X10*3/uL (0.0-0.2); Basophils Percent Auto 0.9 % (0-2); Eosinophils Percent Auto 0.7 % (0-4); Hematocrit 42.3 % (37.0-47.0); Hemoglobin 13.5 g/dl (12.0-16.0); Imm Gran Abs Auto 0.01 X10*3/uL (0.00-0.03); Imm Gran Pct Auto 0.2 % (0.0-0.4); Lymphocytes Absolute Auto 2.1 X10*3/uL (1.2-4.9); Lymphocytes Percent Auto 37.3 % (20-40); Mean Corpuscular HGB Conc 31.9 g/dl (31.0-35.0); Mean Corpuscular Hemoglobin 28.4 pg (27.0-33.0); Mean Corpuscular Volume 88.9 fL (80.0-98.0); Mean Platelet Volume 10.6 fL (9.4-12.3); Monocytes Absolute Auto 0.6 X10*3/uL (0.1-1.2); Monocytes Percent Auto 10.1 % (2-11); Neutrophils Absolute Auto 2.9 x10*3/uL (2.0-8.3); Neutrophils Percent Auto 50.8 % (45-73); Platelet Count 278 X10*3/uL (160-400); Red Blood Count 4.76 X10*6/uL (4.20-5.50); Red Cell Distribution Width 13.2 % (11.0-16.0); White Blood Count 5.7 X10*3/uL (4.8-10.8)
[2025-01-13 14:34] LABS: Alanine Aminotransferase 17 U/L (0-31); Albumin Level 4.3 g/dL (3.5-5.0); Alkaline Phosphatase 65 U/L (39-117); Anion Gap 8 (12-20); Aspartate Amino Transferase 20 U/L (5-31); Bilirubin Total 0.6 mg/dL (0.0-1.0); Blood Urea Nitrogen 17 mg/dL (9-16); Calcium 9.5 mg/dL (8.4-10.2); Carbon Dioxide 28 mmol/L (22-29); Chloride 108 mmol/L (96-108); Cholesterol 178 mg/dL (<200); Estimated Glomerular Filt Rate > 60; Glucose Fasting 118 mg/dL (60-99); HDL Cholesterol 38 mg/dL (>40); LDL Cholesterol Calculated 112 mg/dL (<100); Potassium 4.1 mmol/L (3.3-5.1); Sodium 140 mmol/L (135-145); Total Protein 7.1 g/dL (6.5-8.0); Triglycerides 143 mg/dL (<150)
[2025-01-13 14:49] LABS: TSH reflex Free T4 1.01 uIU/mL (0.32-4.0); Vitamin D 25-OH Total 51.3 ng/mL (>30)
== END 2025-01-13 09:32 | disposition home or self-care (01) ==
LOC: HO.HMGCLDS 09:31
PROVIDERS: PCP Nurse Practitioner Family; Visit Provider Nurse Practitioner Family
DX: Z00.00 Encounter for general adult medical examination without abnormal findings (principal); E55.9 Vitamin D deficiency, unspecified; Z13.6 Encounter for screening for cardiovascular disorders
CPT/HCPCS: 36415; 80053; 80061; 81001; 82306; 84443; 85025

== ENCOUNTER 2025-01-27 09:56 | Outpatient (AMB) | payer BC, SELFPAY ==
[2025-01-27 09:57] VITALS: BP 122/60; PULSE 76; RESP 20; TEMP 37.1; O2SAT 98; BMI 32.7
--- NOTE | 2025-01-27 09:57 | A.OFFPC_ITS ---
Vital Signs 01/27/25 09:57 Height 5 ft 7 in Weight 209 lb BMI 32.7 BP 122/60 Blood Pressure Location Rt brachial Position Sitting Respiration 20 Pulse 76 Pulse Source Pulse Oximeter Temp 98.8 F Temp Source Oral Pulse Oximetry (%) 98 Oxygen Delivery Method Room Air Intake Visit Reasons: 6 Month F/U Intake Note: Pt is here today for 6 months follow up visit. Allergies tetracycline Adverse Reaction (Intermediate, Verified 01/27/25 10:44) Rash Medication List - Last Reconciled 01/27/25 by CHARANJIT Sagastume- amlodipine 5 mg PO DAILY calcium carbonate-vitamin D3 600 mg-10 mcg (400 unit) 1 tab PO BID cetirizine (Zyrtec) 10 mg PO DAILY PRN irbesartan 300 mg PO DAILY Tobacco use date assessed: 01/27/25 Fall risk assessment: No Falls in past year Last assessed Fall Risk: 01/27/25 Dental Screening Dental Screen Date: 01/27/25 Did you have a dental visit in the last 12 months?: Yes Did you have a dental problem in the last 6 months where you did not have access to dental care?: No Was dental information given to patient?: Patient has dentist HPI 6 Month F/U HPI Details Chief Complaint Follow-up consultation for hypertension and elevated fasting blood sugar management. History of Present Illness The patient is a 69-year-old female presenting for follow-up on hypertension and elevated fasting blood sugar. She has hypertension and is focused on controlling her blood pressure with dietary modifications. She has also identified elevated fasting blood sugar levels and is actively pursuing lifestyle changes to address this, including weight loss and dietary adjustments. She is reducing intake of simple carbohydrates by using whole grains and consuming brown rice instead of white rice, demonstrating a commitment to dietary improvements. She is not experiencing additional symptoms or complications related to her hypertension or elevated blood sugar at this time. Social History - Engaged in weight management efforts, including portion size control. - Modified diet to include more whole gr ains and brown rice. - Actively reducing simple carbohydrate intake. Health Maintenance - Discussions regarding dietary changes for hypertension and elevated blood sugar management. - Plans to repeat labs including an A1c test in approximately two months. Review of Systems - Cardiovascular: Denies chest pain, diz ziness. - Respiratory: Denies shortness of breat h. - Gastrointestinal: Denies changes in ap petite, abdominal pain. Physical Exam General: Cooperative, healthy appearing, comfortable, no acute distress and well developed Orientation: Patient oriented x3 Limitations: No limitations Head: Normal to inspection Ears: Hearing grossly normal bilaterally Nose: Normal external nose present Face and sinus: Normal facial exam Eyes: Appearance normal, both eyes and all related structures Neck: Normal visual inspection and Yes full ROM. No carotid bruits noted Respiratory: Normal respiratory effort and able to speak in complete sentences. Clear to auscultation bilaterally Cardiovascular: Regular rate and rhythm. Normal S1 and S2 GI: Normal to inspection. Soft to palpation and nontender Skin: No rashes or lesions noted. No edema Neuro: Patient oriented x3 Extremities: Normal to inspection Results Plan I will continue to support the patient?s efforts in managing her essential hypertension and elevated fasting blood sugar through dietary modifications, focusing on weight loss and portion control. She has significantly reduced her intake of simple carbohydrates, and I have encouraged her to continue opting for whole grains and brown rice. We will repeat laboratory tests, including an A1c, in approximately two months to evaluate her glycemic control. The next follow-up is planned in six months to review her progress and lab results. No additional treatments or medications are necessary at this time due to her effective lifestyle management. Discussion Notes I discussed with the patient her current management strategies for hypertension and elevated fasting blood sugar, commending her on her dietary changes and weight management efforts. I explained the benefits of these lifestyle modifications in controlling her conditions, emphasizing the importance of maintaining these changes to prevent complications. We talked about repeating her blood work, including an A1c test, in two months to monitor her fasting blood sugar levels, and the potential implications these results could have for her management plan. I also outlined the plan for a follow-up appointment in six months to reassess her health status, ensuring her understanding and agreement with the proposed care plan. Patient Instructions - Continue current dietary modifications , focusing on portion control and choosing whole grains and brown rice. - Maintain weight management efforts. - Schedule laboratory tests, including A 1c, in two months. - Follow up with me in six months to rev iew progress and lab results. - Monitor blood pressure and fasting blo od sugar levels regularly. 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 1. Little interest or pleasure in doing things: not at all 2. Feeling down, depressed, or hopeless: not at all 3. Trouble falling or staying asleep, or sleeping too much: not at all 4. Feeling tired or having little energy: not at all 5. Poor appetite or overeating: several days 6. Feeling bad about yourself - or that you are a failure or have let yourself or your family down: not at all 7. Trouble concentrating on things, such as reading the newspaper or watching television: not at all 8. Moving or speaking so slowly that other people could have noticed. Or the opposite - being so fidgety or restless that you have been moving around a lot more than usual: not at all 9. Thoughts that you would be better off or of hurting yourself in some way: not at all Total score: 1 Depression Screening Interpretation: Negative Depression Screening Done: Yes 05347 - PHQ-9 Billing: Yes Source: Developed by Drs. Mike Benjamin, Urmila Cabrales, Bayron Mathew and colleagues, with an educational jim from [employer]. Thrive Questionnaire Date Thrive assessed: 01/27/25 I am a: Patient What is your living situation today?: I have a steady place to live Within the past 12 months, did the food you bought not last and you didn't have the money to get more?: Never true Within the past 12 months, did you worry whether your food would run out before you got money to buy more?: Never true Do you have trouble paying for medicines?: No Do you have trouble getting transportation to medical appointments?: No Do you have trouble paying your heating and electricity bill?: No Do you have trouble taking care of your child, family member or friend?: No Do you have trouble with day-to-day activities such as bathing, preparing meals, shopping, managing finances, etc.?: No Are you currently unemployed and looking for a job?: No Are you interested in more education?: I choose not to answer this question Please select the resources that you would like help with: None Currently or been in a relationship where the following occur: I choose not to answer THRIVE Score: 0 AUDIT C Alcohol Use Questionnaire (AUDIT-C) 1. How often do you have a drink containing alcohol?: Monthly or less 2. How many drinks containing alcohol do you have on a typical day when you are drinking?: 1 or 2 3. How often do you have six or more drinks on one occasion?: Never Total Score: 1 GUILLERMO-7 AMB Questionnaire GUILLERMO-7 Date GUILLERMO - 7 assessed: 01/27/25 Feeling nervous, anxious, or on edge: 0 = Not at all Not being able to stop or control worryin = Not at all Worrying too much about different things: 0 = Not at all Trouble relaxin = Not at all Being so restless that it is hard to sit still: 0 = Not at all Becoming easily annoyed or irritable: 0 = Not at all Feeling afraid as if something awful might happen: 0 = Not at all Total GUILLERMO-7 score (0-4 normal; 5-9 mild; 10-14 moderate; 15-21 severe): 0 Source: Developed by Drs. Mike Benjamin, Urmila Cabrales, Bayron Mathew and colleagues, with an educational jim from [employer]. GUILLERMO-7 Assessment Billing GUILLERMO-7 Assessment Tool: GUILLERMO-7 Assessment 33560 Physical exam (Primary Care) Vital Signs: Last Vital Signs Temp 98.8 F 01/27/25 09:57 Pulse 76 01/27/25 09:57 Resp 20 01/27/25 09:57 BP 122/60 01/27/25 09:57 Pulse Ox 98 01/27/25 09:57 Oxygen Delivery Method Room Air 01/27/25 09:57 BMI result Body Mass Index 32.7 Tobacco/Smoking Status: Tobacco use Status Tobacco use date assessed 01/27/25 01/27/25 10:03 Patient Tobacco Use Status Former Tobacco user 01/27/25 10:03 e-Cigarette/Vaping Use Never Used 01/27/25 10:03 PHQ-9: PHQ-9 Score PHQ-9: Total score 1 01/27/25 10:03 Depression Screening Interpretation: Negative Thrive Assessment: Date of Thrive Assessment Date Thrive assessed 01/27/25 01/27/25 10:03 Currently or been in a relationship where the following occur: I choose not to answer Coding Level of Care Code Est Pt Level 3 (04314) Diagnoses Osteopenia M85.80 Elevated fasting blood sugar R73.01 Additional Codes GUILLERMO-7 Assessment Billing - GUILLERMO-7 Assessment Tool: GUILLERMO-7 Assessment 86659 ([id number]) PHQ-9 - 46044 - PHQ-9 Billing: Yes ([id number]) Assessment & Plan Assessment & Plan (1) Osteopenia: Code(s): M85.80 - Other specified disorders of bone density and structure, unspecified site Category: Medical (2) Elevated fasting blood sugar: Code(s): R73.01 - Impaired fasting glucose Category: Medical Plan . Orders: Orders Comprehensive [place]. Panel Fast Today R73.01 - Impaired fasting glucose Hemoglobin A1c Today R73.01 - Impaired fasting glucose XR DEXA axial skeleton Today M85.80 - Other specified disorders of bone density and structure, unspecified site Lipid Panel Today R73.01 - Impaired fasting glucose
== END 2025-01-27 12:20 | disposition home or self-care (01) ==
LOC: HO.HMCC 09:57
PROVIDERS: PCP Nurse Practitioner Family; Visit Provider Nurse Practitioner Family
DX: M85.80 Other specified disorders of bone density and structure, unspecified site (principal); R73.01 Impaired fasting glucose

== ENCOUNTER → 2025-01-27 09:56 | Outpatient (BNVA) | payer BC, SELFPAY | PROVIDERS: PCP Nurse Practitioner Family; Visit Provider Nurse Practitioner Family | DX: M85.80 Other specified disorders of bone density and structure, unspecified site (principal); R73.01 Impaired fasting glucose; I10 Essential (primary) hypertension | CPT/HCPCS: 96127 ==

== ENCOUNTER 2025-04-03 09:45 | Outpatient (REF) | payer BC, SELFPAY ==
[2025-04-03 13:29] LABS: Alanine Aminotransferase 21 U/L (0-31); Albumin Level 4.4 g/dL (3.5-5.0); Alkaline Phosphatase 62 U/L (39-117); Anion Gap 10 (12-20); Aspartate Amino Transferase 18 U/L (5-31); Bilirubin Total 0.5 mg/dL (0.0-1.0); Blood Urea Nitrogen 18 mg/dL (9-16); Calcium 9.4 mg/dL (8.4-10.2); Carbon Dioxide 26 mmol/L (22-29); Chloride 107 mmol/L (96-108); Cholesterol 180 mg/dL (<200); Estimated Glomerular Filt Rate > 60; Glucose Fasting 108 mg/dL (60-99); HDL Cholesterol 43 mg/dL (>40); LDL Cholesterol Calculated 115 mg/dL (<100); Sodium 139 mmol/L (135-145); Total Protein 6.9 g/dL (6.5-8.0); Triglycerides 111 mg/dL (<150)
[2025-04-03 13:31] LABS: Estimated Average Glucose 117 mg/dL; Hemoglobin A1c % 5.7 % (<6.0); Total Hemoglobin (HGBA1C) 3412.2374 umol/L
== END 2025-04-03 09:46 | disposition home or self-care (01) ==
LOC: HO.HMGCLDS 09:45
PROVIDERS: PCP Nurse Practitioner Family; Visit Provider Nurse Practitioner Family
DX: R73.01 Impaired fasting glucose (principal)
CPT/HCPCS: 36415; 80053; 80061; 83036

== ENCOUNTER 2025-05-08 09:54 | Outpatient (REF) | payer MEDICARE, SELFPAY ==
--- NOTE | ~2025-05-08 | MM_ITS ---
EXAMINATION: DXA BONE DENSITY AXIAL HISTORY: M85.80 - Other specified disorders of bone density and structure, unspecified... TECHNIQUE: [employer] Dual energy absorptiometry (DEXA) of the lumbar spine, total left hip, and femoral neck was performed. COMPARISON: Comparison is made with the prior examination dated 05/01/2023. FINDINGS: The bone mineral density of the lumbar spine is 1.205 g/cm2, corresponding to a T-score of 0.2, and a Z-score of 0.7. This is indicative of normal bone mineral density. This represents a BMD change of 3.0% compared to the prior exam. This is statistically significant. The bone mineral density of the left total hip is 0.911 g/cm2, corresponding to a T-score of -0.8, and a Z-score of -0.3. This is indicative of normal bone mineral density. This represents a BMD change of -2.1% compared to the prior exam. This is not statistically significant. The bone mineral density of the left femoral neck is 0.834 g/cm2, corresponding to a T-score of -1.5, and a Z-score of -0.6. This is indicative of osteopenia. This represents a BMD change of -3.7% compared to the prior exam. FRACTURE RISK: The FRAX index suggests a ten year probability of major osteoporotic fracture of 8.8%, and of hip fracture 1.0%. MM/XR DEXA axial skeleton IMPRESSION: Based on bone mineral density, and according to World Health Organization (WHO) criteria, the diagnosis is consistent with osteopenia. Statistically, 68% of repeat scans fall within 1 SD (+/- 0.010 g/cm2 for AP spine L1-L4) and 1 SD (+/- 0.012 g/cm2 for femur total) FRAX is a trademark of the [employer] [place] [facility] Met[employer] Disease, a World Health Organization (WHO) Collaborating Center. Electronically signed by: Mike Dorado MD 05/11/2025 07:03 AM EDT
== END 2025-05-08 09:55 | disposition home or self-care (01) ==
LOC: HO.MAMMO 09:54
PROVIDERS: PCP Nurse Practitioner Family; Visit Provider Nurse Practitioner Family
DX: Z13.820 Encounter for screening for osteoporosis (principal); M85.852 Other specified disorders of bone density and structure, left thigh
CPT/HCPCS: 77080

== ENCOUNTER → 2025-05-08 10:00 | Outpatient (BNV) | payer MEDICARE, SELFPAY | PROVIDERS: PCP Nurse Practitioner Family; Visit Provider Radiology Diagnostic Radiology | DX: E28.39 Other primary ovarian failure (principal) | CPT/HCPCS: 77080 ==

== ENCOUNTER 2025-07-29 10:27 | Outpatient (AMB) | payer BC, SELFPAY ==
--- NOTE | 2025-07-29 10:32 | A.OFFPC_ITS ---
Vital Signs 07/29/25 10:33 Height 5 ft 7 in Weight 207 lb BMI 32.4 BP 120/68 Blood Pressure Location Lt brachial Position Sitting Respiration 16 Pulse 83 Pulse Source Pulse Oximeter Pulse Oximetry (%) 97 Oxygen Delivery Method Room Air Intake Visit Reasons: 6m follow up Allergies tetracycline Adverse Reaction (Intermediate, Verified 07/29/25 11:04) Rash Medication List - Last Reconciled 07/29/25 by CHARANJIT Sagastume- amlodipine 5 mg PO DAILY calcium carbonate-vitamin D3 600 mg-10 mcg (400 unit) 1 tab PO BID cetirizine (Zyrtec) 10 mg PO DAILY PRN irbesartan 300 mg PO DAILY Tobacco use date assessed: 01/27/25 Dental Screening Dental Screen Date: 01/27/25 HPI 6m follow up HPI Details Chief Complaint The patient presents for a follow-up on hypertension management. History of Present Illness The patient is a 70-year-old female presenting with hypertension management. Her blood pressure readings at home are stable, but there is a concern about the accuracy of her home cuff, as it shows lower readings compared to the clinic's manual cuffs. She denies any symptoms such as chest pain, shortness of breath, headaches, blurred vision, or dizziness. She has a history of a faint systolic murmur, which has been previously assessed with an echocardiogram. She is currently recovering from an upper respiratory infection, with no significant respiratory symptoms observed during the visit. Social History Health Maintenance Review of Systems - Cardiovascular: Denies chest pain, den ies orthopnea, denies syncope - Respiratory: Denies dyspnea, denies fe vers/chills, denies hemoptysis - Neurological: Denies headaches, denies dizziness, denies blurred vision Physical Exam General: Cooperative, healthy appearing, comfortable, no acute distress and well developed Orientation: Patient oriented x3 Limitations: No limitations Head: Normal to inspection Ears: Hearing grossly normal bilaterally Nose: Normal external nose present Face and sinus: Normal facial exam Eyes: Appearance normal, both eyes and all related structures Neck: Normal visual inspection and Yes full ROM Respiratory: Normal respiratory effort and able to speak in complete sentences. Clear to auscultation bilaterally Cardiovascular: Regular rate and rhythm. Normal S1 and S2. Faint systolic murmur present GI: Normal to inspection. Soft to palpation and nontender Skin: No rashes or lesions noted Neuro: Patient oriented x3 Extremities: Normal to inspection, no edema noted Results Plan 1. Essential Hypertension The patient's blood pressure is stable, but there is a concern about the calibration of her home blood pressure cuff. It is recommended to calibrate the home cuff to ensure accurate readings. Follow-up is planned in six months for a full physical examination. 2. Systolic Murmur The patient has a faint systolic murmur, which has been previously evaluated with an echocardiogram. 3. Upper Respiratory Infection The patient is currently recovering from an upper respiratory infection. Discussion Notes I discussed with the patient the importance of calibrating her home blood pressure cuff to ensure accurate readings. We also planned a follow-up in six months for a comprehensive physical examination. Patient Instructions - Ensure your home blood pressure cuff i s calibrated for accurate readings. - Follow up in six months for a full phy sical examination. 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 in [place] Housing: House Patient Tobacco Use Status: Former Tobacco user Years Smoked: quit 1983 e-Cigarette/Vaping Use: Never Used Second Hand Smoke Exposure: No service: No Current occupational status: employed Current occupation: [employer] Current occupational exposures/hazards: Yes Cognitive needs: No Hearing needs: No Vision needs: Yes Questionnaire Thrive Questionnaire Date Thrive assessed: 01/20/25 I am a: Patient What is your living situation today?: I have a steady place to live Within the past 12 months, did the food you bought not last and you didn't have the money to get more?: Never true Within the past 12 months, did you worry whether your food would run out before you got money to buy more?: Never true Do you have trouble paying for medicines?: No Do you have trouble getting transportation to medical appointments?: No Do you have trouble paying your heating and electricity bill?: No Do you have trouble taking care of your child, family member or friend?: No Do you have trouble with day-to-day activities such as bathing, preparing meals, shopping, managing finances, etc.?: No Are you currently unemployed and looking for a job?: No Are you interested in more education?: I choose not to answer this question Please select the resources that you would like help with: None Currently or been in a relationship where the following occur: I choose not to answer THRIVE Score: 0 GUILLERMO-7 AMB Questionnaire GUILLERMO-7 Date GUILLERMO - 7 assessed: 01/27/25 Source: Developed by Drs. Mike Benjamin, Urmila Cabrales, Bayron Mathew and colleagues, with an educational jim from [employer]. Physical exam (Primary Care) Vital Signs: Last Vital Signs Pulse 83 07/29/25 10:33 Resp 16 07/29/25 10:33 BP 120/68 07/29/25 10:33 Pulse Ox 97 07/29/25 10:33 Oxygen Delivery Method Room Air 07/29/25 10:33 BMI result Body Mass Index 32.4 Tobacco/Smoking Status: Tobacco use Status Tobacco use date assessed 01/27/25 07/29/25 10:36 Patient Tobacco Use Status Former Tobacco user 07/29/25 10:36 e-Cigarette/Vaping Use Never Used 07/29/25 10:36 Thrive Assessment: Date of Thrive Assessment Date Thrive assessed 01/20/25 07/29/25 10:36 Currently or been in a relationship where the following occur: I choose not to answer Coding Level of Care Code Est Pt Level 3 (11795) Diagnoses HTN (hypertension) I10 Vitamin D deficiency E55.9 Postmenopausal Z78.0 Screening for cervical cancer Z12.4 Assessment & Plan Assessment & Plan (1) HTN (hypertension): Code(s): I10 - Essential (primary) hypertension Category: Medical (2) Vitamin D deficiency: Code(s): E55.9 - Vitamin D deficiency, unspecified Category: Medical (3) Postmenopausal: Code(s): Z78.0 - Asymptomatic menopausal state Category: Medical (4) Screening for cervical cancer: Code(s): Z12.4 - Encounter for screening for malignant neoplasm of cervix Category: Medical Plan . Orders: Orders TSH reflex Free T4 Today E55.9 - Vitamin D deficiency, unspecified UA CC w/rflx Micro + Cult Today E55.9 - Vitamin D deficiency, unspecified Lipid Panel Today E55.9 - Vitamin D deficiency, unspecified Vitamin D 25-OH Total Today E55.9 - Vitamin D deficiency, unspecified Complete Blood Count Auto Diff Today E55.9 - Vitamin D deficiency, unspecified Comprehensive [place]. Panel Fast Today E55.9 - Vitamin D deficiency, unspecified Referrals A[employer] PHOTOGRAPHER Referral Z12.4 - Encounter for screening for malignant neoplasm of cervix, Z78.0 - Asymptomatic menopausal state
[2025-07-29 10:33] VITALS: BP 120/68; PULSE 83; RESP 16; O2SAT 97; BMI 32.4
== END 2025-07-29 10:58 | disposition home or self-care (01) ==
LOC: HO.HMCC 10:28
PROVIDERS: PCP Nurse Practitioner Family; Visit Provider Nurse Practitioner Family
DX: I10 Essential (primary) hypertension (principal); E55.9 Vitamin D deficiency, unspecified; Z78.0 Asymptomatic menopausal state; Z12.4 Encounter for screening for malignant neoplasm of cervix